=== PATIENT | male | born 1965 | race Caucasian/White ===

== ENCOUNTER → 2016-12-18 | Outpatient (CLI) | payer OTHER, BC ==
[~2016-12-18] MED LIST: ASPI-621 PO; BENA20TA61 PO; CARV6.252 PO; CHOL10003 PO; EZET10TA3 PO; FLAX1000 PO; HYDR25TA6 PO; MULT-658 PO; OMEG-14 PO; OXYC1TAB7 PO; SERT50TA PO
== END | disposition home or self-care (01) ==
LOC: WOUND 08:02
PROVIDERS: ATTEND Internal Medicine Cardiovascular Disease
DX: I83.892 Varicose veins of left lower extremity with other complications (principal)
CPT/HCPCS: 36475

== ENCOUNTER → 2016-12-20 | Outpatient (CLI) | payer BC, OTHER | END | disposition home or self-care (01) | LOC: CVU 09:33 | PROVIDERS: ATTEND Internal Medicine Cardiovascular Disease | DX: I87.2 Venous insufficiency (chronic) (peripheral) (principal) | CPT/HCPCS: 93971 ==

== ENCOUNTER 2017-05-15 07:11 | Day surgery (SDC) | payer BC, OTHER ==
[~2017-05-15] VITALS: Ht 185.4 cm; Wt 122.1 kg
[~2017-05-15 07:11] MED LIST changes: +AMLO5TAB2 PO; +ASPI-496 PO; +BUPIVACAINE/PF 0.5% ONE; +CHOL100012 PO; +EZET10TA18 PO; -EZET10TA3 PO; +FENO145T13 PO; +LABE300T PO; +MULT1TAB60 PO; +SERT100T5 PO
[2017-05-15] MEDS ORDERED: LACTATED RINGERS 1,000 ML IV SCH (07:32)
[2017-05-15 07:52] VITALS: BP 142/84
[2017-05-15] MEDS ORDERED: FENTANYL PF 100 MCG/2ML ONE ×2 (08:11→08:12)
[2017-05-15] MEDS ORDERED: MIDAZOLAM 1 MG/ML, 2ML ONE (08:13)
[2017-05-15] MEDS ORDERED: PROPOFOL 10 MG/ML, 20ML ONE (08:13)
[2017-05-15] MEDS ORDERED: SODIUM CHLORIDE 0.9% PF 10ML ONE (08:14)
[2017-05-15] MEDS ORDERED: CEFAZOLIN 1,000 MG ONE ×2 (08:14)
[2017-05-15] MEDS ORDERED: HYDROmorphone 1 MG/ML, 1ML IV PRN (09:00)
[2017-05-15] MEDS ORDERED: ACETAMINOPHEN 325 MG TABLET PO PRN (09:00)
[2017-05-15] MEDS ORDERED: LABETALOL 5MG/ML, 20ML IV PRN (09:00)
[2017-05-15] MEDS ORDERED: PROMETHAZINE 25 MG/ML, 1ML IV PRN (09:00)
[2017-05-15] MEDS ORDERED: MEPERIDINE/PF 25MG/0.5ML IVPush PRN (09:00)
[2017-05-15] MEDS ORDERED: hydrALAzine 20 MG/ML, 1ML IV PRN (09:00)
[2017-05-15] MEDS ORDERED: ONDANSETRON 2MG/ML, 2ML IVPush PRN (09:00)
[2017-05-15] MEDS ORDERED: FENTANYL PF 100 MCG/2ML IV PRN (09:00)
[2017-05-15] MEDS ORDERED: OXYcodone 5 MG/5 ML ORAL.SOL UDC PO PRN (09:00)
[2017-05-15] MEDS ORDERED: BUPIVACAINE/PF 0.5% INFIL ONE (09:17)
[2017-05-15] MEDS ORDERED: OXYcodone 5 MG/5 ML ORAL.SOL UDC ONE (10:02)
[2017-05-15] MEDS ORDERED: ACETAMINOPHEN 650 MG/20.3 ML UDC ONE (10:03)
== END 2017-05-15 11:00 ==
LOC: OUT 07:11
PROVIDERS: ATTEND Orthopaedic Surgery
DX: G56.02 Carpal tunnel syndrome, left upper limb (principal); I10 Essential (primary) hypertension; G47.33 Obstructive sleep apnea (adult) (pediatric); Z88.5 Allergy status to narcotic agent; Z88.0 Allergy status to penicillin; Z88.8 Allergy status to other drugs, medicaments and biological substances
CPT/HCPCS: 29848; J0690; J2250; J2704; J3010; J3490; J7120

== ENCOUNTER → 2018-05-22 | Outpatient (CLI) | payer OTHER ==
[~2018-05-22] MED LIST changes: +AMLO-150 PO; -AMLO5TAB2 PO; -ASPI-621 PO; +ASPI81TA45 PO; -BUPIVACAINE/PF 0.5% ONE; -FENO145T13 PO; +FENO145T30 PO; -LABE300T PO; +LABE300T2 PO
== END | disposition home or self-care (01) ==
LOC: CVU 15:34
PROVIDERS: ATTEND Internal Medicine Cardiovascular Disease
DX: I82.492 Acute embolism and thrombosis of other specified deep vein of left lower extremity (principal)
CPT/HCPCS: 93971

== ENCOUNTER 2018-07-02 13:21 | Day surgery (SDC) | payer OTHER ==
[2018-07-01 13:27] LABS: ALANINE AMINOTRANSFERASE 141 U/L (12-78); ALBUMIN 4.2 g/dL (3.4-5.0); ANION GAP 9 mmol/L (5-15); CALCIUM 9.4 mg/dL (8.5-10.1); CHLORIDE 108 mmol/L (98-107); CREATININE 1.24 mg/dL (0.7-1.3)
[2018-07-01 13:29] LABS: ALKALINE PHOSPHATASE 48 U/L (45-117); BILIRUBIN,TOTAL 0.4 mg/dL (0.2-1.0); TOTAL PROTEIN 7.4 g/dL (6.4-8.2)
[~2018-07-02] VITALS: Ht 185.4 cm; Wt 128.7 kg
[~2018-07-02 13:21] MED LIST changes: +OMEG-123 PO; +SERT100T32 PO; -SERT100T5 PO
[2018-07-02] MEDS ORDERED: LACTATED RINGERS 1,000 ML IV SCH (13:47)
[2018-07-02 13:51] VITALS: BP 147/96
[2018-07-02] MEDS ORDERED: MIDAZOLAM 1 MG/ML, 2ML ONE (14:52)
[2018-07-02] MEDS ORDERED: FENTANYL PF 100 MCG/2ML ONE (14:52)
[2018-07-02] MEDS ORDERED: PROPOFOL 10 MG/ML, 20ML ONE ×2 (14:54→16:10)
[2018-07-02] MEDS ORDERED: SODIUM CHLORIDE 0.9% PF 10ML ONE (15:20)
[2018-07-02] MEDS ORDERED: CEFAZOLIN 1,000 MG ONE ×2 (15:20)
[2018-07-02] MEDS ORDERED: ONDANSETRON ODT 8 MG PO PRN (15:30)
[2018-07-02] MEDS ORDERED: PROMETHAZINE 25 MG/ML, 1ML IM PRN ×2 (15:30)
[2018-07-02] MEDS ORDERED: hydrALAzine 20 MG/ML, 1ML IV PRN (15:30)
[2018-07-02] MEDS ORDERED: MORPHINE SULFATE 4 MG/ML, 1ML IVPush PRN (15:30)
[2018-07-02] MEDS ORDERED: ONDANSETRON 2MG/ML, 2ML IV PRN (15:30)
[2018-07-02] MEDS ORDERED: MEPERIDINE/PF 25MG/0.5ML IVPush PRN (15:30)
[2018-07-02] MEDS ORDERED: PROMETHAZINE 12.5 MG SUPP PR PRN (15:30)
[2018-07-02] MEDS ORDERED: PROMETHAZINE 25 MG SUPP PR PRN (15:30)
[2018-07-02] MEDS ORDERED: OXYcodone 5 MG/5 ML ORAL.SOL UDC PO PRN (15:30)
[2018-07-02] MEDS ORDERED: FENTANYL PF 100 MCG/2ML IV PRN (15:30)
[2018-07-02] MEDS ORDERED: HYDROmorphone 2 MG/ML, 1ML IVPush PRN (15:30)
[2018-07-02] MEDS ORDERED: PROMETHAZINE 25 MG/ML, 1ML IV PRN (15:30)
[2018-07-02] MEDS ORDERED: LABETALOL 5MG/ML, 20ML IV PRN (15:30)
[2018-07-02] MEDS ORDERED: BUPIVACAINE/PF 0.25% ONE (15:53)
[2018-07-02] MEDS ORDERED: LIDOCAINE/PF 0.5% ,50ML ONE (15:53)
[2018-07-02] MEDS ORDERED: BUPIVACAINE/PF 0.5% ONE (15:53)
[2018-07-02] MEDS ORDERED: LIDOCAINE 1%, 20ML ONE (15:53)
[2018-07-02] MEDS ORDERED: ACETAMINOPHEN 650 MG/20.3 ML UDC ONE (16:37)
[2018-07-02] MEDS ORDERED: OXYcodone 5 MG/5 ML ORAL.SOL UDC ONE (16:37)
== END 2018-07-02 18:25 | disposition home or self-care (01) ==
LOC: OR 13:21
PROVIDERS: ATTEND Orthopaedic Surgery
DX: G56.01 Carpal tunnel syndrome, right upper limb (principal); I10 Essential (primary) hypertension; E78.5 Hyperlipidemia, unspecified; Z88.5 Allergy status to narcotic agent; Z88.0 Allergy status to penicillin; Z88.8 Allergy status to other drugs, medicaments and biological substances
CPT/HCPCS: 29848; 36415; 80053; 93005; J0690; J2250; J2704; J3010; J3490; J7120; J2001

== ENCOUNTER → 2018-12-02 | Outpatient (CLI) | payer OTHER | END | disposition home or self-care (01) | LOC: CFH 13:00 | PROVIDERS: ATTEND Internal Medicine | DX: M48.07 Spinal stenosis, lumbosacral region (principal); M51.36 Other intervertebral disc degeneration, lumbar region; M43.27 Fusion of spine, lumbosacral region | CPT/HCPCS: 72100; 72148 ==

== ENCOUNTER 2018-12-12 12:47 | Outpatient (CLI) | payer OTHER ==
[2018-12-12] MEDS ORDERED: LABE200T6 PO (13:20)
[2018-12-12] MEDS ORDERED: DESV100T12 PO (13:20)
[2018-12-12 13:48] LABS: BASOPHILS # (AUTO) 0.02 x10^3/uL (0-0.1); BASOPHILS % (AUTO) 0 % (0-1); EOSINOPHILS # (AUTO) 0.08 x10^3/uL (0-0.4); EOSINOPHILS % (AUTO) 1 % (1-7); LYMPHOCYTES # (AUTO) 1.33 x10^3/uL (1-3.4); LYMPHOCYTES % (AUTO) 15 % (22-44); MD NO; MEAN CORPUSCULAR HEMOGLOBIN 28.9 pg (27.5-34.5); MEAN CORPUSCULAR HGB CONC 33.6 g/dL (33.2-36.2); MEAN CORPUSCULAR VOLUME 85.8 fL (81-97); MONOCYTES % (AUTO) 1 % (2-9); NEUTROPHILS # (AUTO) 7.25 x10^3/uL (1.8-6.8); NEUTROPHILS % (AUTO) 83 % (42-75); PLATELET COUNT 184 x10^3/uL (130-400); RED BLOOD COUNT 5.77 x10^6/uL (4.38-5.82); RED CELL DISTRIBUTION WIDTH 13.5 % (9.4-14.8)
[2018-12-12 13:57] LABS: INTERNATIONAL NORMALIZED RATIO 1.08 (0.93-1.1); PROTHROMBIN TIME 11.3 Seconds (9.6-11.5)
[2018-12-12 13:59] LABS: ALANINE AMINOTRANSFERASE 244 U/L (12-78); ALBUMIN 4.3 g/dL (3.4-5.0); ANION GAP 7 mmol/L (5-15); CALCIUM 9.5 mg/dL (8.5-10.1); CHLORIDE 106 mmol/L (98-107)
[2018-12-12 14:01] LABS: ALKALINE PHOSPHATASE 91 U/L (45-117); BILIRUBIN,TOTAL 0.6 mg/dL (0.2-1.0)
== END 2018-12-12 23:59 | disposition home or self-care (01) ==
LOC: STAR 12:47
PROVIDERS: ATTEND Neurological Surgery
DX: Z01.818 Encounter for other preprocedural examination (principal); M51.26 Other intervertebral disc displacement, lumbar region
CPT/HCPCS: 36415; 71046; 80053; 85025; 85610; 85730; 93005

== ENCOUNTER 2018-12-17 05:57 | Inpatient (IN) | payer OTHER ==
[~2018-12-17] VITALS: Ht 185.4 cm; Wt 131.1 kg
[~2018-12-17 05:57] MED LIST changes: +DESV100T12 PO; +LABE200T6 PO
[2018-12-17] MEDS ORDERED: LACTATED RINGERS 1,000 ML IV SCH (06:27)
[2018-12-17] MEDS ORDERED: THROMBIN 20,000 UNIT VIAL TP ONE (07:05)
[2018-12-17] MEDS ORDERED: BUPIVACAINE/EPI 0.5% 1:200K ONE (07:05)
[2018-12-17] MEDS ORDERED: BACITRACIN 50,000 UNIT ONE (07:05)
[2018-12-17] MEDS ORDERED: BACITRACIN OINT 500U/GM, 15 GM ONE (07:05)
[2018-12-17] MEDS ORDERED: THROMBIN 5,000 UNIT VIAL TP ONE (07:07)
[2018-12-17] MEDS ORDERED: MIDAZOLAM 1 MG/ML, 2ML ONE (07:21)
[2018-12-17] MEDS ORDERED: FENTANYL PF 250 MCG/5ML ONE ×2 (07:21→09:30)
[2018-12-17] MEDS ORDERED: EPHEDRINE 50 MG/ML, 1ML ONE (07:39)
[2018-12-17] MEDS ORDERED: OXYcodone 5 MG/5 ML ORAL.SOL UDC PO PRN (09:30)
[2018-12-17] MEDS ORDERED: ACETAMINOPHEN 325 MG TABLET PO PRN ×2 (09:30→15:00)
[2018-12-17] MEDS ORDERED: LABETALOL 5MG/ML, 20ML IV PRN (09:30)
[2018-12-17] MEDS ORDERED: HYDROmorphone 2 MG/ML, 1ML IVPush PRN (09:30)
[2018-12-17] MEDS ORDERED: FENTANYL PF 100 MCG/2ML IV PRN (09:30)
[2018-12-17] MEDS ORDERED: hydrALAzine 20 MG/ML, 1ML IV PRN (09:30)
[2018-12-17] MEDS ORDERED: DIAZEPAM 5 MG/ML, 2ML IVPush PRN (09:30)
[2018-12-17] MEDS ORDERED: MEPERIDINE/PF 25MG/0.5ML IVPush PRN (09:30)
[2018-12-17] MEDS ORDERED: KETOROLAC 30 MG/1 ML IV PRN (09:30)
[2018-12-17] MEDS ORDERED: PROMETHAZINE 25 MG/ML, 1ML IV PRN (09:30)
[2018-12-17] MEDS ORDERED: ALBUTEROL SULFATE 2.5 MG/3 ML NPPB PRN (09:30)
[2018-12-17] MEDS ORDERED: GLYCOPYRROLATE 0.2MG/1ML, 5ML ONE (12:03)
[2018-12-17] MEDS ORDERED: NEOSTIGMINE 1 MG/ML, 10ML ONE (12:03)
[2018-12-17] MEDS ORDERED: SUCCINYLCHOLINE 20 MG/ML, 10ML ONE (12:03)
[2018-12-17] MEDS ORDERED: ONDANSETRON 2MG/ML, 2ML ONE (12:03)
[2018-12-17] MEDS ORDERED: CEFAZOLIN 1,000 MG ONE (12:03)
[2018-12-17] MEDS ORDERED: PROPOFOL 10 MG/ML, 20ML ONE (12:03)
[2018-12-17] MEDS ORDERED: ROCURONIUM 10MG/ML,5ML ONE (12:03)
[2018-12-17] MEDS ORDERED: DEXAMETHASONE 4 MG/ML, 1ML ONE (12:03)
[2018-12-17] MEDS ORDERED: HYDROmorphone PCA 30 MG/30 ML IV PRN (12:30)
[2018-12-17] MEDS ORDERED: OXYcodone 5 MG/5 ML ORAL.SOL UDC ONE (12:38)
[2018-12-17] MEDS ORDERED: FENTANYL PF 100 MCG/2ML ONE (12:38)
[2018-12-17 13:55] VITALS: BP 147/84
[2018-12-17] MEDS ORDERED: DIPHENHYDRAMINE 50 MG/ML, 1ML IM PRN (15:00)
[2018-12-17] MEDS ORDERED: HYDROcodone/APAP 10/325 MG TABLET PO PRN (15:00)
[2018-12-17] MEDS ORDERED: BISACODYL 10 MG SUPP PR PRN (15:00)
[2018-12-17] MEDS ORDERED: DIPHENHYDRAMINE 50 MG CAPSULE PO PRN (15:00)
[2018-12-17] MEDS ORDERED: HYDROmorphone 2 MG/ML, 1ML IM PRN (15:00)
[2018-12-17] MEDS ORDERED: ACETAMINOPHEN 650 MG SUPP PR PRN (15:00)
[2018-12-17] MEDS ORDERED: METHOCARBAMOL 1,000 MG in DEXTROSE 5% 100 ML IV ONE (15:00)
[2018-12-17] MEDS ORDERED: ONDANSETRON 2MG/ML, 2ML IV PRN (15:00)
[2018-12-17] MEDS ORDERED: HYDROmorphone 2MG TABLET PO PRN (15:00)
[2018-12-17] MEDS ORDERED: DIPHENHYDRAMINE 50 MG/ML, 1ML IVPush PRN (15:00)
[2018-12-17] MEDS ORDERED: PROMETHAZINE 25 MG/ML, 1ML IM PRN (15:00)
[2018-12-17] MEDS ORDERED: MAGNESIUM HYDROXIDE 8%, 30ML UDC PO PRN (15:00)
[2018-12-17] MEDS: NS + 20MEQ KCL 1,000 ML IV SCH (15:14)
[2018-12-17] MEDS: CEFAZOLIN PMX 2GM/50ML 50 ML IVPB SCH (17:37)
[2018-12-17] MEDS: GABAPENTIN 300 MG CAPSULE PO SCH ×2 (17:37→20:21)
[2018-12-17 20:10] VITALS: BP 126/74
[2018-12-17] MEDS: LABETALOL 300 MG TABLET PO SCH (20:21)
[2018-12-17] MEDS ORDERED: ZOLPIDEM 5MG TABLET PO PRN (21:00)
[2018-12-17] MEDS: METHOCARBAMOL 750 MG in DEXTROSE 5% 100 ML IV SCH (23:13)
[2018-12-17 23:51] VITALS: BP 117/66
[2018-12-18] MEDS: NS + 20MEQ KCL 1,000 ML IV SCH ×2 (01:00→11:00)
[2018-12-18] MEDS: CEFAZOLIN PMX 2GM/50ML 50 ML IVPB SCH ×2 (02:15→11:14)
[2018-12-18 04:01] VITALS: BP 118/75
[2018-12-18 06:11] LABS: BASOPHILS # (AUTO) 0.02 x10^3/uL (0-0.1); BASOPHILS % (AUTO) 0 % (0-1); EOSINOPHILS % (AUTO) 0 % (1-7); LYMPHOCYTES # (AUTO) 1.01 x10^3/uL (1-3.4); LYMPHOCYTES % (AUTO) 11 % (22-44); MD NO; MEAN CORPUSCULAR HEMOGLOBIN 29.5 pg (27.5-34.5); MEAN CORPUSCULAR HGB CONC 33.6 g/dL (33.2-36.2); MEAN CORPUSCULAR VOLUME 87.9 fL (81-97); MEAN PLATELET VOLUME 7.3 fL (7.4-10.4); MONOCYTES # (AUTO) 0.43 x10^3/uL (0.2-0.8); MONOCYTES % (AUTO) 4 % (2-9); NEUTROPHILS # (AUTO) 8.24 x10^3/uL (1.8-6.8); NEUTROPHILS % (AUTO) 85 % (42-75); PLATELET COUNT 152 x10^3/uL (130-400); RED CELL DISTRIBUTION WIDTH 13.5 % (9.4-14.8)
[2018-12-18 06:25] LABS: ANION GAP 7 mmol/L (5-15); CALCIUM 8.6 mg/dL (8.5-10.1); CHLORIDE 109 mmol/L (98-107)
[2018-12-18 06:30] LABS: CREATININE 0.97 mg/dL (0.7-1.3)
[2018-12-18 06:37] VITALS: BP 117/69
[2018-12-18] MEDS: CHOLECALCIFEROL 1,000 UNIT TABLET PO SCH (07:28)
[2018-12-18] MEDS: METHOCARBAMOL 750 MG in DEXTROSE 5% 100 ML IV SCH ×3 (07:28→22:47)
[2018-12-18] MEDS: SENNA/DOCUSATE TABLET PO SCH (07:29)
[2018-12-18] MEDS: LABETALOL 300 MG TABLET PO SCH ×2 (07:29→21:15)
[2018-12-18] MEDS: HYDROCHLOROTHIAZIDE 25 MG TABLET PO SCH (07:30)
[2018-12-18] MEDS: GABAPENTIN 300 MG CAPSULE PO SCH ×3 (07:30→21:15)
[2018-12-18] MEDS: EZETIMIBE 10 MG TABLET PO SCH (07:30)
[2018-12-18] MEDS: DESVENLAFAXINE 100 MG PO SCH (09:00)
[2018-12-18] MEDS: OXYcodone/APAP 10/325MG TABLET PO PRN ×3 (11:20→21:15)
[2018-12-18 16:06] VITALS: BP 125/75
[2018-12-18 19:42] VITALS: BP 129/72
[2018-12-18] MEDS: SODIUM CHLORIDE FLUSH 10ML SYR IVF SCH (21:00)
[2018-12-19 02:06] VITALS: BP 145/82
[2018-12-19] MEDS: OXYcodone/APAP 10/325MG TABLET PO PRN ×3 (05:46→15:26)
[2018-12-19] MEDS: METHOCARBAMOL 750 MG in DEXTROSE 5% 100 ML IV SCH ×2 (06:34→15:27)
[2018-12-19 08:37] VITALS: BP 134/71
[2018-12-19] MEDS ORDERED: MAGNESIUM HYDROXIDE 8%, 30ML UDC PO SCH (09:00)
[2018-12-19] MEDS: CHOLECALCIFEROL 1,000 UNIT TABLET PO SCH (09:27)
[2018-12-19] MEDS: GABAPENTIN 300 MG CAPSULE PO SCH ×2 (09:28→15:26)
[2018-12-19] MEDS: SENNA/DOCUSATE TABLET PO SCH (09:28)
[2018-12-19] MEDS: LABETALOL 300 MG TABLET PO SCH (09:28)
[2018-12-19] MEDS: HYDROCHLOROTHIAZIDE 25 MG TABLET PO SCH (09:28)
[2018-12-19] MEDS: EZETIMIBE 10 MG TABLET PO SCH (09:29)
[2018-12-19] MEDS: SODIUM CHLORIDE FLUSH 10ML SYR IVF SCH (09:41)
[2018-12-19] MEDS: DESVENLAFAXINE 100 MG PO SCH (09:42)
[2018-12-19] MEDS ORDERED: BISACODYL 10 MG SUPP PR ONE (13:00)
[2018-12-19 13:40] VITALS: BP 147/81
[2018-12-19] MEDS ORDERED: OXYC-307 PO (16:05)
[2018-12-19] MEDS ORDERED: METH750T87 PO (16:06)
[2018-12-19] MEDS ORDERED: METHOCARBAMOL 750 MG TABLET PO SCH (23:00)
== END 2018-12-19 17:14 | disposition home or self-care (01) | DRG 454 ==
LOC: ORIP 05:57 → 4NOR 13:40 → DCLOUNGE 12-19 17:00
PROVIDERS: ADMIT Neurological Surgery; ATTEND Neurological Surgery
PROC: 0SG00A0 Fusion of Lumbar Vertebral Joint with Interbody Fusion Device, Anterior Approach, Anterior Column, Open Approach (ICD-10-PCS; 2018-12-17)
PROC: 0SG0071 Fusion of Lumbar Vertebral Joint with Autologous Tissue Substitute, Posterior Approach, Posterior Column, Open Approach (ICD-10-PCS; 2018-12-17)
PROC: 01NB0ZZ Release Lumbar Nerve, Open Approach (ICD-10-PCS; 2018-12-17)
PROC: 0ST20ZZ Resection of Lumbar Vertebral Disc, Open Approach (ICD-10-PCS; 2018-12-17)
PROC: 4A11X4G Monitoring of Peripheral Nervous Electrical Activity, Intraoperative, External Approach (ICD-10-PCS; 2018-12-17)
PROC: 5A09357 Assistance with Respiratory Ventilation, Less than 24 Consecutive Hours, Continuous Positive Airway Pressure (ICD-10-PCS; principal; 2018-12-18)
PROC: 5A09357 Assistance with Respiratory Ventilation, Less than 24 Consecutive Hours, Continuous Positive Airway Pressure (ICD-10-PCS; 2018-12-19)
DX: M51.16 Intervertebral disc disorders with radiculopathy, lumbar region (principal); M51.06 Intervertebral disc disorders with myelopathy, lumbar region; M43.16 Spondylolisthesis, lumbar region; M25.78 Osteophyte, vertebrae; E78.5 Hyperlipidemia, unspecified; E66.9 Obesity, unspecified; G89.4 Chronic pain syndrome; G56.00 Carpal tunnel syndrome, unspecified upper limb; I10 Essential (primary) hypertension; Z68.38 Body mass index [BMI] 38.0-38.9, adult; Z88.0 Allergy status to penicillin; Z88.5 Allergy status to narcotic agent; Z88.8 Allergy status to other drugs, medicaments and biological substances; Z82.49 Family history of ischemic heart disease and other diseases of the circulatory system
CPT/HCPCS: 36415; 72100; 80048; 85025; 86850; 86900; C1713; G0378; J0690; J1100; J1170; J2250; J2405; J2550; J2704; J2710; J3010; J3480; C1762; C1763; J0330; J2800; J7120

== ENCOUNTER → 2019-04-08 | Outpatient (CLI) | payer OTHER ==
[~2019-04-08] MED LIST changes: -EZET10TA18 PO; +EZET10TA70 PO; +METH750T87 PO; +OXYC-307 PO
== END | disposition home or self-care (01) ==
LOC: CFH 11:38
PROVIDERS: ATTEND Nurse Practitioner Family
DX: E78.2 Mixed hyperlipidemia (principal); I10 Essential (primary) hypertension; M10.9 Gout, unspecified; R42 Dizziness and giddiness; R60.0 Localized edema; R73.02 Impaired glucose tolerance (oral)
CPT/HCPCS: 93880

== ENCOUNTER 2019-10-24 00:05 | Emergency (ER) | payer OTHER ==
[~2019-10-24] VITALS: Ht 185.4 cm; Wt 119.3 kg
[~2019-10-24 00:05] MED LIST changes: +FENO145T19 PO; -FENO145T30 PO; +MULT-449 PO; -MULT1TAB60 PO
[2019-10-24 00:14] VITALS: BP 124/77
[2019-10-24] MEDS ORDERED: AMLO10TA8 PO (00:35)
[2019-10-24] MEDS ORDERED: ESCI10TA PO (00:36)
[2019-10-24] MEDS ORDERED: OXYcodone/APAP 5/325MG TABLET ONE (01:25)
[2019-10-24] MEDS ORDERED: OXYcodone/APAP 5/325MG TABLET PO ONE (01:30)
== END 2019-10-24 01:59 | disposition home or self-care (01) ==
LOC: ED 01:06
DX: S63.522A Sprain of radiocarpal joint of left wrist, initial encounter (principal); I10 Essential (primary) hypertension; W18.39XA Other fall on same level, initial encounter; Y93.89 Activity, other specified; Y92.098 Other place in other non-institutional residence as the place of occurrence of the external cause; Y99.8 Other external cause status
CPT/HCPCS: 29125; 99283